=== PATIENT | female | born 1950 | race Caucasian/White ===

== ENCOUNTER 2019-04-04 08:52 | Inpatient (IN) | payer MEDICARE, OTHER ==
[~2019-04-04] VITALS: Ht 162.6 cm; Wt 69.9 kg
[~2019-04-04 08:52] MED LIST: ASPIRIN 81M81 MG/TA2 PO; B-12 250 MCG PO; BRINTELLIX10 PO; CEPHALEXIN500 M1 PO; CYTOMEL 5MC5 MCG/TAB PO; D3-5050000 IU PO; ELIQUIS 5MG PO; FOLIC ACID 11 MG/TA1 PO; K-DUR 10 MEQ T10 MEQ PO; KEPPRA750 MG PO; LOPRESSOR 225 MG/TAB PO; NEURONTIN300 MG/CAP PO; NORCO2.5 PO; REQUIP 0.5MG0.5 MG PO; TOPAMAX200 MG PO; VITAMIN C500 MG PO
[2019-04-04 09:04] VITALS: BP 136/67; PULSE 58; TEMP 97.1
[2019-04-04 10:04] LABS: BASO # 0.1 (0.0-0.2); BASO % 0.8 % (0.0-2.0); EOS # 0.4 (0.0-0.7); EOS % 3.1 % (0-4.0); GRAN # 7.9 (1.4-6.5); GRAN % 68.6 % (42.2-75.2); HEMATOCRIT 40.2 % (37.0-47.0); HEMOGLOBIN 12.6 g/dl (12.5-16.0); LYMPH # 2.4 (1.2-3.4); MEAN CELL VOLUME 88 fl (80.0-100.0); MEAN CORPUSCULAR HEMOGLOBIN 28 pg (27.0-31.0); MEAN CORPUSCULAR HGB CONC 31 g/dl (33.0-37.0); MEAN PLATELET VOLUME 9.7 fl (7.4-10.4); MONO # 0.7 (0.1-0.6); MONO % 6.1 % (1.7-9.3); PLATELET COUNT 342 K/mm3 (130-400); RED BLOOD COUNT 4.55 M/mm3 (4.10-5.30); REDCELL DISTRIBUTION WIDTH-CV 13.8 % (11.5-14.5)
[2019-04-04 10:08] LABS: INR 1.2 (0.8-3.0); PROTHROMBIN TIME 14.5 SECONDS (9.7-12.8)
[2019-04-04 10:16] LABS: ALBUMIN 4.1 gm/dL (3.5-5.0); BILIRUBIN,TOTAL 0.3 mg/dL (0.0-1.0); CALCIUM 9.5 mg/dL (8.4-10.2); CREATININE, serum 0.67 (0.52-1.25); MAGNESIUM 2.1 mg/dL (1.6-2.3); POTASSIUM 3.7 mmol/L (3.4-5.0); TOTAL PROTEIN 7.8 gm/dL (6.4-8.2)
[2019-04-04] MEDS ORDERED: MELATONIN1 MG PO (10:30)
[2019-04-04] MEDS ORDERED: LIPITOR 40MG TA40 MG PO (10:31)
[2019-04-04] MEDS ORDERED: SYNTHROID 0.0.025 MG PO (10:32)
[2019-04-04] MEDS ORDERED: TYLENOL 500MG500 MG PO (10:33)
[2019-04-04 11:29] VITALS: BP 149/61; PULSE 56; TEMP 97.4
[2019-04-04 17:10] VITALS: BP 141/52; PULSE 58; TEMP 98.1
[2019-04-04 21:48] VITALS: BP 144/57; PULSE 63; TEMP 98
[2019-04-05 01:18] VITALS: BP 117/62; PULSE 58; TEMP 98.6
[2019-04-05 06:14] LABS: BASO # 0.1 (0.0-0.2); BASO % 0.8 % (0.0-2.0); EOS # 0.4 (0.0-0.7); EOS % 3.9 % (0-4.0); GRAN # 6.1 (1.4-6.5); GRAN % 59.9 % (42.2-75.2); HEMATOCRIT 37.4 % (37.0-47.0); HEMOGLOBIN 11.9 g/dl (12.5-16.0); LYMPH % 29.1 % (20.0-51.0); MEAN CELL VOLUME 87 fl (80.0-100.0); MEAN CORPUSCULAR HEMOGLOBIN 28 pg (27.0-31.0); MEAN CORPUSCULAR HGB CONC 32 g/dl (33.0-37.0); MEAN PLATELET VOLUME 9.6 fl (7.4-10.4); MONO # 0.6 (0.1-0.6); PLATELET COUNT 329 K/mm3 (130-400); RED BLOOD COUNT 4.28 M/mm3 (4.10-5.30); REDCELL DISTRIBUTION WIDTH-CV 13.9 % (11.5-14.5)
[2019-04-05 06:29] VITALS: BP 110/80; PULSE 57; TEMP 98.3
[2019-04-05 06:33] LABS: CREATININE, serum 0.67 (0.52-1.25); MAGNESIUM 2.1 mg/dL (1.6-2.3)
[2019-04-05 07:55] VITALS: BP 129/59; PULSE 56; TEMP 97.9
[2019-04-05 11:28] VITALS: BP 111/54; PULSE 55; TEMP 97.8
[2019-04-05 16:16] VITALS: BP 117/49; PULSE 54; TEMP 97.8
[2019-04-05 20:12] VITALS: BP 136/59; PULSE 58; TEMP 98.6
[2019-04-06] VITALS: BP 120/53; PULSE 64; TEMP 98.1
[2019-04-06 05:04] VITALS: BP 136/88; PULSE 69; TEMP 97.4
[2019-04-06 06:09] LABS: BASO # 0.1 (0.0-0.2); BASO % 0.8 % (0.0-2.0); EOS # 0.5 (0.0-0.7); EOS % 4.6 % (0-4.0); GRAN # 5.9 (1.4-6.5); GRAN % 57.3 % (42.2-75.2); HEMOGLOBIN 11.4 g/dl (12.5-16.0); LYMPH # 3.1 (1.2-3.4); LYMPH % 29.9 % (20.0-51.0); MEAN CELL VOLUME 87 fl (80.0-100.0); MEAN CORPUSCULAR HEMOGLOBIN 28 pg (27.0-31.0); MEAN CORPUSCULAR HGB CONC 32 g/dl (33.0-37.0); MEAN PLATELET VOLUME 9.7 fl (7.4-10.4); MONO # 0.7 (0.1-0.6); MONO % 7.1 % (1.7-9.3); PLATELET COUNT 310 K/mm3 (130-400); REDCELL DISTRIBUTION WIDTH-CV 13.8 % (11.5-14.5)
[2019-04-06 06:24] LABS: HEMATOCRIT 35.6 % (37.0-47.0)
[2019-04-06 06:28] LABS: CALCIUM 8.6 mg/dL (8.4-10.2); CREATININE, serum 0.65 (0.52-1.25); POTASSIUM 3.7 mmol/L (3.4-5.0)
[2019-04-06 08:06] VITALS: BP 112/56; PULSE 61; TEMP 97.9
[2019-04-06] MEDS ORDERED: BETAPACE 80MG80 MG PO (10:26)
== END 2019-04-06 11:15 | disposition home or self-care (01) | DRG 310 ==
LOC: MEDICAL 08:52
PROVIDERS: ADMIT Internal Medicine Cardiovascular Disease
DX: I48.92 Unspecified atrial flutter (principal); Z79.01 Long term (current) use of anticoagulants; I48.0 Paroxysmal atrial fibrillation; I10 Essential (primary) hypertension; E78.00 Pure hypercholesterolemia, unspecified; Z88.5 Allergy status to narcotic agent; Z88.7 Allergy status to serum and vaccine; Z88.6 Allergy status to analgesic agent; Z91.030 Bee allergy status; Z91.040 Latex allergy status; Z51.81 Encounter for therapeutic drug level monitoring

== ENCOUNTER → 2021-10-20 | Outpatient (CLI) | payer MEDICARE, OTHER ==
[~2021-10-20] MED LIST changes: +B-121000 MCG PO; +BETAPACE 80MG80 MG PO; +LEVOXYL0.05 MG PO; +LIPITOR 40MG TA40 MG PO; +MELATONIN1 MG PO; +NORCO 325 MG-51 TAB PO; +NORVASC 5MG5 MG/TAB PO; +PACERONE200 MG PO; +PROTONIX 40MG T40 MG PO; +REQUIP5 MG PO; +SYNTHROID 0.0.025 MG PO; +SYNTHROID0.05 MG/TA PO; +TOPROL XL 50MG50 MG PO; +TYLENOL 500MG500 MG PO; +VITAMIN D3 PO
== END ==
LOC: MC.RAD 13:00
DX: C50.412 Malignant neoplasm of upper-outer quadrant of left female breast (principal)
CPT/HCPCS: A9520; C1769